=== PATIENT | male | born 1985 | race Caucasian/White ===

== ENCOUNTER 2017-11-04 15:14 | Outpatient (CLI) | END 2017-11-04 15:15 | disposition home or self-care (01) | LOC: CAR 15:14 | PROVIDERS: ATTEND Psychiatry & Neurology Sleep Medicine | DX: G47.33 Obstructive sleep apnea (adult) (pediatric) (principal) | CPT/HCPCS: 95810 ==

== ENCOUNTER 2018-06-22 10:40 | Outpatient (CLI) | END 2018-06-22 10:41 | disposition home or self-care (01) | LOC: RHC-LAB 10:40 | PROVIDERS: ATTEND Nurse Practitioner Family | DX: R05 Cough (principal) | CPT/HCPCS: 87502 ==

== ENCOUNTER 2020-09-05 21:26 | Inpatient (IN) ==
[2020-09-05 21:33] VITALS: BMI 26.2
[2020-09-05] MEDS: SODIUM CHLORIDE 1,000 ML IV STA (22:05)
[2020-09-05 22:19] LABS: BILIRUBIN,URINE Negative (NEGATIVE); CLARITY,URINE Clear (CLEAR); COLOR,URINE Yellow (YELLOW); GLUCOSE, URINE (UA) Negative (NEGATIVE); KETONES,URINE Negative (NEGATIVE); LEUKOCYTE ESTERASE ,URINE Negative (NEGATIVE); NITRITE,URINE Negative (NEGATIVE); PROTEIN,URINE 1+ (NEGATIVE); URINE, BLOOD Negative (NEGATIVE); UROBILINOGEN,URINE 0.2 (0.2)
[2020-09-05 22:24] LABS: SQUAMOUS EPITHELIAL CELL,UR 0-2 (0-5); URINE WBC, MICROSCOPIC 0-2 (0-2)
[2020-09-05 22:37] LABS: BASOPHILS % (AUTO) 0.4 % (0.0-3.0); EOSINOPHILS % (AUTO) 0.2 % (0.0-7.0); HEMATOCRIT 42.6 % (42.0-52.0); HEMOGLOBIN 14.3 g/dl (14.0-18.0); IMMATURE GRANULOCYTE % (AUTO) 0.3 % (0.0-5.0); LYMPHOCYTES # (AUTO) 1.1 K/uL (0.60-3.4); LYMPHOCYTES % (AUTO) 9.8 (10.0-50.0); MEAN CORPUSCULAR HEMOGLOBIN 30.8 pg (27.0-31.0); MEAN CORPUSCULAR HGB CONC 33.6 (31.8-35.4); MEAN CORPUSCULAR VOLUME 91.6 fl (80.0-94.0); MONOCYTES % (AUTO) 8.6 (0-10); NEUTROPHILS # (AUTO) 9.2 K/ul (2.0-6.9); NEUTROPHILS % (AUTO) 80.7 % (42.2-75.2); PLATELET COUNT 228 10^3/uL (140-440); RDW COEFFICIENT OF VARIATION 13.2 % (11.6-14.8); RED BLOOD COUNT 4.65 10^6/ul (4.70-6.10); WHITE BLOOD COUNT 11.39 K/ul (4.2-10.2)
[2020-09-05 22:49] LABS: ALANINE AMINOTRANSFERASE 30.1 U/L (0-50); ALBUMIN 4.11 g/dL (3.5-5.0); ALKALINE PHOSPHATASE 58.6 U/L (38-126); AMYLASE 70.7 U/L (30-110); ASPARTATE AMINO TRANSFERASE 23.5 U/L (17-59); BILIRUBIN,TOTAL 0.74 mg/dL (0.2-1.3); BLOOD UREA NITROGEN 14.1 mg/dL (9-20); CALCIUM 8.47 mg/dL (8.4-10.2); CARBON DIOXIDE 26.2 mmol/L (22-30.0); CHLORIDE 105.6 mmol/L (98-107); CREATININE 1.19 mg/dL (0.60-1.10); GLUCOSE 146.1 mg/dL (74-106); LIPASE 77.6 U/L (23-300); POTASSIUM 3.62 mmol/L (3.5-5.1); SODIUM 138.3 mmol/L (134.5-145); TOTAL PROTEIN 6.8 g/dL (6.3-8.2)
[2020-09-05 23:13] LABS: ERYTHROCYTE SEDIMENTATION RATE 7 mm/hr (0-15)
--- NOTE | 2020-09-06 00:08 | CT ---
Exam: CT of the abdomen and pelvis pre and post contrast History: Lower abdomen pain Technique: [address] of the abdomen and pelvis with and without contrast FINDINGS: The lung bases are clear. No significant liver abnormality. The adrenals, pancreas and s pleen are unremarkable. The stomach and hiatus are unremarkable.The gallbladder appears normal. Kid neys and proximal collecting system are unremarkable. The appendix is normal. Bowel loops demonstra te normal caliber. No inflamatory change seen in the mesentery or retroperitoneum. Vascular structu res appear normal. Focal short segment sigmoid colonic thickening with pericolonic inflammation. Central offending dive rticula is present. No free intraperitoneal gas. Normal pelvic genitourinary structures. No acute findings of the skeleton. Impression: 1. Short segment sigmoid colonic thickening with pericolonic inflammation and central offending dive rticula. No measurable abscess cavity. A few specks of gas in the immediate adjacent mesentery. 2. No bowel or urinary obstruction All CT scans are performed using dose optimization techniques as appropriate to the performed exam an d include at least one of the following: Automated exposure control, adjustment of the mA and/or kV according t o size, and the use of iterative reconstruction technique.
[2020-09-06 00:22] LABS: BORDETELLA PARAPERTUSSIS (PCR) NOT DETECTED (NOT DETECT); BORDETELLA PERTUSSIS (PCR) NOT DETECTED (NOT DETECT); CHLAMYDIA PNEUMONIAE (PCR) NOT DETECTED (NOT DETECT); CORONAVIRUS 229E (PCR) NOT DETECTED (NOT DETECT); CORONAVIRUS HKU1 (PCR) NOT DETECTED (NOT DETECT); CORONAVIRUS NL63 (PCR) NOT DETECTED (NOT DETECT); CORONAVIRUS OC43 (PCR) NOT DETECTED (NOT DETECT); HUMAN METAPNEUMOVIRUS (PCR) NOT DETECTED (NOT DETECT); HUMAN RHINOVIRUS/ENTEROV (PCR) NOT DETECTED (NOT DETECT); INFLUENZA B (PCR) NOT DETECTED (NOT DETECT); MYCOPLASMA PNEUMONIAE (PCR) NOT DETECTED (NOT DETECT); PARAINFLUENZA VIRUS 1 (PCR) NOT DETECTED (NOT DETECT); PARAINFLUENZA VIRUS 2 (PCR) NOT DETECTED (NOT DETECT); PARAINFLUENZA VIRUS 3 (PCR) NOT DETECTED (NOT DETECT); PARAINFLUENZA VIRUS 4 (PCR) NOT DETECTED (NOT DETECT); RESPIRATORY SYNCYTIAL V (PCR) NOT DETECTED (NOT DETECT); SARS_COV_2 (PCR) NOT DETECTED (NOT DETECT)
--- NOTE | 2020-09-06 00:22 | ED.PDOC ---
General ED Provider: Dr. AKIL HOLT Chief Complaint: Abdominal Pain Stated Complaint: im hurting in my lower belly Time Seen by Provider: 09/06/20 00:22 Mode of Arrival: Walk-In Information Source: Patient Primary Care Provider: STACY ANGULO Nursing and Triage Documentation Reviewed and Agree: Yes Does patient meet sepsis criteria?: No System Inflammatory Response Syndrome: Not Applicable Sepsis Protocol: For patient's 13 years and over: Temp is 96.8 and below OR 101 and greater Pulse >90 BPM Resp >20/minute Acutely Altered Mental Status Are patient's symptoms suggestive of a new infection, such as: -Pneumonia -Skin, Soft Tissue -Endocarditis -UTI -Bone, Joint Infection -Implantable Device -Acute Abdominal Infection -Wound Infection -Meningitis -Blood Stream Catheter Infection -Unknown GI Complaint Exam Abdominal Pain Complaint/Exam Onset: Gradual Duration: 2 days Symptoms Are: Still present Timing: Constant Initial Severity: Mild Current Severity: Mild Location of Pain: Suprapubic Character: Reports Dull, Aching and Cramping Aggravating: Reports None Alleviating: Reports None Associated Signs and Symptoms: Denies Diaphoresis, Fever, Cough, Chest pain, Dizziness, Back pain, Constipation, Blood in stool, Dysuria, Urinary frequency, Decreased urine output, Decreased appetite, Discharge, Nausea, Vomiting, Diarrhea and Decreased activity Abdominal Findings: Present None Differential Diagnoses: Constipation and Diverticulitis Quality Indicator For Non-Traumatic Chest Pain/Syncope: EKG Performed Review of Systems Review Of Systems Constitutional: Reports No symptoms Eyes: Reports No symptoms Ears, Nose, Mouth, Throat: Reports No symptoms Respiratory: Reports No symptoms Cardiac: Reports No symptoms GI: Reports Abdominal pain : Reports No symptoms Musculoskeletal: Reports No symptoms Skin: Reports No symptoms Neurological: Reports No symptoms Endocrine: Reports No symptoms Hematologic/Lymphatic: Reports No symptoms All Other Systems: Reviewed and Negative [facility] Medical History Potential exposure to STD Throat irritation Family History Mother Diabetes Hyperlipidemia Hyperthyroidism Hypertension FATHER No problems noted. Grandfather/Grandmother Dementia Cardiac disease Hyperlipidemia Hyperthyroidism Kidney disorder Cerebrovascular accident Hypertension Other Thyroid cancer Social History Smoking and tobacco status: Never smoker Alcohol intake: never Substance use type: does not use Rula/nondenominational: voodoo of Special rula needs: No Agree to transfusion: Yes Adopted: No Caregiver/support person: Yes Household members: family Housing: house Lives independently: Yes Highest education level completed: Master's degree Financial difficulty paying for basics: not applicable service: Yes Current occupational status: employed Current occupation: Teacher Current occupational exposures/hazards: Yes Pets and animals: Yes Leisure activites: exercise and games History of recent travel: No Sexually active: Yes Do you think of yourself as: straight/heterosexual Current gender identity: male Seatbelt use: always Helmet use: No Drives intoxicated or rides with intoxicated race car driver: No Water heater temperature set < 120 degrees: Yes Working smoke detector in home: Yes Fire extinguisher in home: Yes Carbon monoxide detector in home: Yes Firearms in home: Yes Firearms unloaded and locked: Yes Surgical History History of dental surgery Status post hernia repair Physical Exam Physical Exam Appearance: Reports Well-appearing Ill-appearing: Not Applicable Pain Distress: Moderate Eyes: Reports LILIA, EOMI and Conjunctiva clear ENT: Reports Ears normal, Nose normal and Oropharynx normal Neck: Supple Respiratory: Reports Airway patent, Breath sounds clear and Breath sounds equal Cardiovascular: Reports RRR, Pulses normal, No rub and No murmur GI/: Reports Soft, Nontender, No masses and Bowel sounds normal Musculoskeletal: Reports Normal strength, ROM intact, No edema and No calf tenderness Skin: Reports Warm, Dry and Normal color Neurological: Reports Sensation intact, Motor intact, Reflexes intact, Cranial nerves intact, Alert and Oriented Psychiatric: Reports Affect appropriate and Mood appropriate Interpretation Radiology Interpretation Radiology Interpretation By: Radiologist Radiology Results: Positive Exam Interpreted: CT Scan EKG Interpretation Time of EKG #1: 00:20 Rate: Normal Rhythm: Sinus Ectopy: None [place]: NL ST Segment: Normal Interpretation: nsr Physician Notification Case Discussed Physician Notified: dr angulo Time of Notification: 00:21 Critical Care Note Critical Care Note Total Critical Care Time (mins): 0 Course Course Hematology/Chemistry: 09/05/20 22:31 09/05/20 22:31 Orders, Labs, Meds: Lab Review 09/05/20 09/05/20 09/05/20 21:50 22:31 22:31 WBC 11.39 H RBC 4.65 L Hgb 14.3 Hct 42.6 MCV 91.6 MCH 30.8 MCHC 33.6 RDW Coeff of Geoffrey 13.2 Plt Count 228 Immature Gran % (Auto) 0.3 Neut % (Auto) 80.7 H Lymph % (Auto) 9.8 L [place] % (Auto) 8.6 Eos % (Auto) 0.2 Baso % (Auto) 0.4 Neut # (Auto) 9.2 H Lymph # (Auto) 1.1 [place] # (Auto) 1.0 Eos # (Auto) 0.0 Baso # (Auto) 0.0 Immature Gran # (Auto) 0.0 ESR 7 Sodium 138.3 Potassium 3.62 Chloride 105.6 Carbon Dioxide 26.2 Anion Gap 10.12 BUN 14.1 Creatinine 1.19 H Estimated GFR (MDRD) 69.00 BUN/Creatinine Ratio 11.84 Glucose 146.1 H Calcium 8.47 Total Bilirubin 0.74 AST 23.5 ALT 30.1 Alkaline Phosphatase 58.6 Total Protein 6.80 Albumin 4.11 Globulin 2.69 Albumin/Globulin Ratio 1.52 Amylase 70.7 Lipase 77.6 Urine Color Yellow Urine Clarity Clear Urine pH 6.0 Ur Specific [place] >=1.030 Urine Protein 1+ H Urine Glucose (UA) Negative Urine Ketones Negative Urine Blood Negative Urine Nitrite Negative Urine Bilirubin Negative Urine Urobilinogen 0.2 Ur Leukocyte Esterase Negative Urine Microscopic WBC 0-2 Ur Squamous Epith Cells 0-2 Orders Category Date Time Status EKG-(ED ONLY) Stat CARDIO 09/05/20 21:57 Completed NPO REMINDER: IMAGING ONCE CARE 09/05/20 21:58 Completed ED IV/MEDIPORT/POWERPORT .ONCE EMERGENCY 09/05/20 21:57 Active AMYLASE Stat LAB 09/05/20 22:31 Completed CBC W/ AUTO DIFF Stat LAB 09/05/20 22:31 Completed COMPREHENSIVE METABOLIC PANEL Stat LAB 09/05/20 22:31 Completed ESR Stat LAB 09/05/20 22:31 Completed LIPASE Stat LAB 09/05/20 22:31 Completed RESPIRATORY PANEL 2.1 (PCR) Stat LAB 09/06/20 Ordered URINALYSIS C & S IF INDICATED Stat LAB 09/05/20 21:50 Completed 0.9 % Sodium Chloride [Saline Flush] MEDS 09/05/20 21:57 Active 1 syr IVF PRN PRN Sodium Chloride 0.9% [Sodium Chloride] 1,000 ml MEDS 09/05/20 21:57 Active IV 100 mls/hr CT ABDOMEN/PELVIS W/WO CONTRAS Stat RADS 09/05/20 21:57 Completed Medications Generic Name Dose Route Start Last Admin Trade Name Freq PRN Reason Stop Dose Admin Sodium Chloride 1,000 mls @ 100 mls/hr 09/05/20 21:57 09/05/20 22:05 Sodium Chloride IV 09/06/20 07:56 100 mls/hr .Q10H STA Administration Sodium Chloride 1 syr 09/05/20 21:57 0.9% Sodium Chloride 10 Ml Disp.Syrin IVF PRN PRN To flush IV Vital Signs: Temp Pulse Resp BP Pulse Ox 09/05/20 21:27 97.3 F L 104 H 20 143/72 H 98 Discharge Plan Discharge Patient Disposition: ADMITTED INPATIENT Discharge Problem: Diverticulitis Prescriptions: No Action MULTI VITAMIN DAILY 1 EACH tablet 1 ea PO DAILY RF: 0 testosterone 2.5 GM gel in packet 0.75 ml transdermal WEEKLY RF: 0 losartan-hydrochlorothiazide 1 EACH tablet 1 ea PO DAILY RF: 0 rosuvastatin [Crestor] 20 mg Tablet 20 mg PO DAILY RF: 0 anastrozole 1 mg Tablet 1 mg PO DAILY RF: 0 lorazepam [Ativan] 0.5 mg Tablet 0.5 mg PO BEDTIME PRN (Reason: Anxiety) RF: 0 ED Provider: AKIL HOLT Condition: Good Physician Progress Note: []
[2020-09-06] MEDS ORDERED: LEVAQUIN 750 MG/150 ML D5W 750 MG/150 ML BAG IV SCH (00:30)
[2020-09-06] MEDS ORDERED: DILAUDID 1 MG/ML SYRINGE ONE (00:31)
[2020-09-06] MEDS: DILAUDID 1 MG/ML SYRINGE IVP PRN ×5 (00:36→23:30)
[2020-09-06 01:10] LABS: ADENOVIRUS (PCR) NOT DETECTED (NOT DETECT)
[2020-09-06] MEDS: D5%-NS-KCL 20 MEQ/L IV SOL 1,000 ML IV SCH ×4 (01:52→13:37)
[2020-09-06] MEDS: FLAGYL 500 MG/100 ML 500 MG/100 ML BAG IV SCH ×4 (02:11→20:24)
[2020-09-06 04:59] LABS: BASOPHILS % (AUTO) 0.4 % (0.0-3.0); EOSINOPHILS % (AUTO) 0.2 % (0.0-7.0); HEMATOCRIT 40.9 % (42.0-52.0); HEMOGLOBIN 13.4 g/dl (14.0-18.0); IMMATURE GRANULOCYTE % (AUTO) 0.4 % (0.0-5.0); LYMPHOCYTES # (AUTO) 1.1 K/uL (0.60-3.4); LYMPHOCYTES % (AUTO) 10.3 (10.0-50.0); MEAN CORPUSCULAR HEMOGLOBIN 30.5 pg (27.0-31.0); MEAN CORPUSCULAR HGB CONC 32.8 (31.8-35.4); MONOCYTES % (AUTO) 8.8 (0-10); NEUTROPHILS # (AUTO) 8.9 K/ul (2.0-6.9); NEUTROPHILS % (AUTO) 79.9 % (42.2-75.2); PLATELET COUNT 213 10^3/uL (140-440); RDW COEFFICIENT OF VARIATION 13.2 % (11.6-14.8); WHITE BLOOD COUNT 11.08 K/ul (4.2-10.2)
[2020-09-06 05:12] LABS: ALANINE AMINOTRANSFERASE 27.3 U/L (0-50); ALBUMIN 3.79 g/dL (3.5-5.0); ALKALINE PHOSPHATASE 52.5 U/L (38-126); ASPARTATE AMINO TRANSFERASE 23.2 U/L (17-59); BILIRUBIN,TOTAL 0.71 mg/dL (0.2-1.3); BLOOD UREA NITROGEN 12.1 mg/dL (9-20); CALCIUM 8.15 mg/dL (8.4-10.2); CARBON DIOXIDE 27.7 mmol/L (22-30.0); CHLORIDE 106.1 mmol/L (98-107); CREATININE 1.11 mg/dL (0.60-1.10); GLUCOSE 115.5 mg/dL (74-106); POTASSIUM 4.33 mmol/L (3.5-5.1); SODIUM 137.9 mmol/L (134.5-145); TOTAL PROTEIN 6.51 g/dL (6.3-8.2)
--- NOTE | 2020-09-06 09:24 | PCM.PROG ---
Attending Provider: ATTENDING PROVIDER: Dr. STACY CHAN DATE OF SERVICE: 09/06/20 SUBJECTIVE: This 35 year old /WHITE M was hospitalized 09/06/20 with acute diverticulitis. The patient's condition is still the same with lower quadrant abdominal pain which is mild. The patient has a low grade fever, no chills. Symptoms of diverticulitis for past three days. The patient had a bowel movement yesterday. The CT of abdomen and pelvis showed pericolonic inflammation, no abscess and no free air. REVIEW OF SYSTEMS: CONSTITUTIONAL: No night sweats. No fatigue, malaise, lethargy. No fever or chills. HEENT: Eyes: No visual changes. No eye pain. No eye discharge. ENT: No runny nose. No epistaxis. No sinus pain. No odynophagia. No congestion. RESPIRATORY: No cough, no congestion. No hemoptysis. No shortness of breath. CARDIOVASCULAR: No angina symptoms. No CHF symptoms. No atypical chest pain for CAD. No palpitations. No orthopnea.. GASTROINTESTINAL: No abdominal pain. No nausea or vomiting. No diarrhea or constipation. No hematemesis. No hematochezia. GENITOURINARY: No urgency. No frequency. No dysuria. No hematuria. No obstructive symptoms. No discharge. No pain. No significant abnormal bleeding. MUSCULOSKELETAL: No musculoskeletal pain; no joint swelling. NEUROLOGICAL: Awake, alert, oriented to time, place and person. No headache. No neck pain. No syncope. No seizures. No dizziness. PSYCHIATRIC: Not anxious. No depression. No suicidal thoughts. No homicidal thoughts. SKIN: No rash. No lesions. No wounds. ENDOCRINE: No unexplained weight loss. No weight gain. HEMATOLOGIC/LYMPHATIC: No anemia. No purpura. No petechiae. No prolonged or excessive bleeding. No palpable lymph nodes. PHYSICAL EXAMINATION: GENERAL: The patient is awake, alert and oriented, lying in bed in no distress. VITAL SIGNS: Temperature 99.3 F, Pulse 92, Respiratory Rate 18, BP 142/73, Pulse Ox 96% HEENT: Head normocephalic, atraumatic. Eyes: Extraocular muscles are intact. Pupils are equal, round and reactive to light and accommodation. Ears: No lesions. Nose appeared normal. Throat: No exudate or erythema. NECK: Supple. No JVD, no carotid bruit. No lymphadenopathy or thyromegaly. LUNGS: Clear to auscultation. Percussion note normal. Chest symmetrical. HEART: S1, S2, no S3. No murmurs. No cyanosis or clubbing. No ascites. P ulses: Dorsalis pedis and posterior tibial pulses +1 to +2 both sides. ABDOMEN: Soft. Tender in both lower quadrant. No rebound. Bowel sounds active. No CVA tenderness. No mass felt. EXTREMITIES: No edema. Full range of motion of all extremities, equal. NEUROLOGIC: No focal deficit. Cranial nerves II through XII are grossly intact. No headache, no double vision or headache. SKIN: Warm and dry. Intact. Turgor-normal. LYMPHATIC: No palpable lymph nodes/no lymphedema. MUSCULOSKELETAL: Normal joints with no swelling. Muscle tone is normal. LAB REVIEW: 09/06/20 04:47 09/06/20 04:47 09/06/20 04:47: Sodium 137.9, Potassium 4.33, Chloride 106.1, Carbon Dioxide 27.7, Anion Gap 8.43, BUN 12.1, Creatinine 1.11 H, Estimated GFR (MDRD) 75.00, BUN/Creatinine Ratio 10.90, Glucose 115.5 H, Calcium 8.15 L, Total Bilirubin 0.71, AST 23.2, ALT 27.3, Alkaline Phosphatase 52.5, Total Protein 6.51, Albumin 3.79, Globulin 2.72, Albumin/Globulin Ratio 1.39 09/06/20 04:47: WBC 11.08 H, RBC 4.40 L, Hgb 13.4 L, Hct 40.9 L, MCV 93.0, MCH 30.5, MCHC 32.8, RDW Coeff of Geoffrey 13.2, Plt Count 213, Immature Gran % (Auto) 0.4, Neut % (Auto) 79.9 H, Lymph % (Auto) 10.3, [place] % (Auto) 8.8, Eos % (Auto) 0.2, Baso % (Auto) 0.4, Neut # (Auto) 8.9 H, Lymph # (Auto) 1.1, [place] # (Auto) 1.0, Eos # (Auto) 0.0, Baso # (Auto) 0.0, Immature Gran # (Auto) 0.0 09/06/20 00:20: Adenovirus (PCR) Not detected, B. pertussis DNA (PCR) Not detected, B.parapertussis DNA PCR Not detected, C. pneumoniae DNA (PCR) Not detected, Coronavirus OC43 (PCR) Not detected, Coronavirus HKU1 (PCR) Not detected, Coronavirus 229E (PCR) Not detected, Coronavirus NL63 (PCR) Not detected, Human Metapneumovir PCR Not detected, Influenza Type A (PCR) Not detected, Influenza B (RT-PCR) Not detected, M. pneumoniae (PCR) Not detected, Parainfluenza 1 (PCR) Not detected, Parainfluenza 2 (PCR) Not detected, Parainfluenza 3 (PCR) Not detected, Parainfluenza 4 (PCR) Not detected, RSV (PCR) Not detected, Entero/Rhino (PCR) Not detected, SARS-CoV-2 (PCR) Not detected 09/05/20 22:31: Sodium 138.3, Potassium 3.62, Chloride 105.6, Carbon Dioxide 26.2, Anion Gap 10.12, BUN 14.1, Creatinine 1.19 H, Estimated GFR (MDRD) 69.00, BUN/Creatinine Ratio 11.84, Glucose 146.1 H, Calcium 8.47, Total Bilirubin 0.74, AST 23.5, ALT 30.1, Alkaline Phosphatase 58.6, Total Protein 6.80, Albumin 4.11, Globulin 2.69, Albumin/Globulin Ratio 1.52, Amylase 70.7, Lipase 77.6 09/05/20 22:31: WBC 11.39 H, RBC 4.65 L, Hgb 14.3, Hct 42.6, MCV 91.6, MCH 30.8, MCHC 33.6, RDW Coeff of Geoffrey 13.2, Plt Count 228, Immature Gran % (Auto) 0.3, Neut % (Auto) 80.7 H, Lymph % (Auto) 9.8 L, [place] % (Auto) 8.6, Eos % (Auto) 0.2, Baso % (Auto) 0.4, Neut # (Auto) 9.2 H, Lymph # (Auto) 1.1, [place] # (Auto) 1.0, Eos # (Auto) 0.0, Baso # (Auto) 0.0, Immature Gran # (Auto) 0.0, ESR 7 09/05/20 21:50: Urine Color Yellow, Urine Clarity Clear, Urine pH 6.0, Ur Specific [place] >=1.030, Urine Protein 1+ H, Urine Glucose (UA) Negative, Urine Ketones Negative, Urine Blood Negative, Urine Nitrite Negative, Urine Bilirubin Negative, Urine Urobilinogen 0.2, Ur Leukocyte Esterase Negative, Urine Microscopic WBC 0-2, Ur Squamous Epith Cells 0-2 ASSESSMENT: Please see below. 1. Acute diverticulitis PLAN: 1. Continue Flagyl and Levaquin 2. The patient is hungry, we are going to start clear liquids. 3. The patient is advised to be up and about 4. Continue IV fluids at 75cc an hour. Plan and coordination of the patient's care discussed in the presence of Ceramics Machine Operator and nurse. SCRIBED BY: JUDI GALO Analysis Consultant scribed while in presence of service performed by Dr. STACY CHAN on 09/06/20 ([id number])
[2020-09-06] MEDS: HYZAAR 50-12.5 MG TAB PO SCH (10:07)
[2020-09-06] MEDS: ARIMIDEX PO SCH ×2 (10:07→10:17)
[2020-09-06] MEDS: CRESTOR PO SCH (10:08)
[2020-09-06] MEDS: LOVENOX SUBCUT SCH (10:08)
[2020-09-06] MEDS: ZOFRAN 4 MG/2 ML IVP PRN ×2 (11:27→23:36)
[2020-09-06] MEDS: LEVAQUIN 750 MG/150 ML D5W 750 MG/150 ML BAG IV SCH (21:38)
[2020-09-07] MEDS: DILAUDID 1 MG/ML SYRINGE IVP PRN ×4 (04:02→21:38)
[2020-09-07] MEDS: FLAGYL 500 MG/100 ML 500 MG/100 ML BAG IV SCH ×3 (04:03→20:22)
[2020-09-07 05:27] LABS: BASOPHILS # (AUTO) 0.1 K/uL (0-0.2); BASOPHILS % (AUTO) 0.5 % (0.0-3.0); EOSINOPHILS % (AUTO) 0.2 % (0.0-7.0); HEMATOCRIT 40.3 % (42.0-52.0); HEMOGLOBIN 13.4 g/dl (14.0-18.0); IMMATURE GRANULOCYTE % (AUTO) 0.3 % (0.0-5.0); LYMPHOCYTES # (AUTO) 1.2 K/uL (0.60-3.4); LYMPHOCYTES % (AUTO) 11.8 (10.0-50.0); MEAN CORPUSCULAR HEMOGLOBIN 31.3 pg (27.0-31.0); MEAN CORPUSCULAR HGB CONC 33.3 (31.8-35.4); MEAN CORPUSCULAR VOLUME 94.2 fl (80.0-94.0); MONOCYTES # (AUTO) 1.1 K/uL (0.4-2.0); MONOCYTES % (AUTO) 10.3 (0-10); NEUTROPHILS # (AUTO) 8.1 K/ul (2.0-6.9); NEUTROPHILS % (AUTO) 76.9 % (42.2-75.2); PLATELET COUNT 196 10^3/uL (140-440); RDW COEFFICIENT OF VARIATION 13.1 % (11.6-14.8); RED BLOOD COUNT 4.28 10^6/ul (4.70-6.10); WHITE BLOOD COUNT 10.52 K/ul (4.2-10.2)
[2020-09-07 05:31] LABS: ALANINE AMINOTRANSFERASE 20.4 U/L (0-50); ALBUMIN 3.83 g/dL (3.5-5.0); ASPARTATE AMINO TRANSFERASE 24.8 U/L (17-59); BILIRUBIN,TOTAL 0.81 mg/dL (0.2-1.3); BLOOD UREA NITROGEN 8.5 mg/dL (9-20); CALCIUM 8.56 mg/dL (8.4-10.2); CARBON DIOXIDE 29.8 mmol/L (22-30.0); CHLORIDE 101.3 mmol/L (98-107); CREATININE 1.28 mg/dL (0.60-1.10); GLUCOSE 110.2 mg/dL (74-106); POTASSIUM 3.96 mmol/L (3.5-5.1); SODIUM 136.8 mmol/L (134.5-145); TOTAL PROTEIN 6.6 g/dL (6.3-8.2)
[2020-09-07] MEDS: D5%-NS-KCL 20 MEQ/L IV SOL 1,000 ML IV SCH (07:15)
[2020-09-07] MEDS: CRESTOR PO SCH (09:04)
[2020-09-07] MEDS: HYZAAR 50-12.5 MG TAB PO SCH (09:04)
[2020-09-07] MEDS: LOVENOX SUBCUT SCH (09:04)
[2020-09-07] MEDS: ZOFRAN 4 MG/2 ML IVP PRN ×2 (09:37→21:38)
[2020-09-07] MEDS: LEVAQUIN 750 MG/150 ML D5W 750 MG/150 ML BAG IV SCH (21:34)
[2020-09-07] MEDS: ATIVAN PO PRN (23:16)
[2020-09-08] MEDS: D5%-NS-KCL 20 MEQ/L IV SOL 1,000 ML IV SCH ×2 (00:09→13:02)
[2020-09-08 05:07] LABS: BASOPHILS % (AUTO) 0.6 % (0.0-3.0); EOSINOPHILS % (AUTO) 0.6 % (0.0-7.0); HEMOGLOBIN 13.4 g/dl (14.0-18.0); IMMATURE GRANULOCYTE % (AUTO) 0.4 % (0.0-5.0); LYMPHOCYTES # (AUTO) 0.9 K/uL (0.60-3.4); LYMPHOCYTES % (AUTO) 13.6 (10.0-50.0); MEAN CORPUSCULAR HEMOGLOBIN 30.7 pg (27.0-31.0); MEAN CORPUSCULAR HGB CONC 33.5 (31.8-35.4); MEAN CORPUSCULAR VOLUME 91.5 fl (80.0-94.0); MONOCYTES # (AUTO) 0.7 K/uL (0.4-2.0); MONOCYTES % (AUTO) 10.1 (0-10); NEUTROPHILS # (AUTO) 5.1 K/ul (2.0-6.9); NEUTROPHILS % (AUTO) 74.7 % (42.2-75.2); PLATELET COUNT 228 10^3/uL (140-440); RDW COEFFICIENT OF VARIATION 12.9 % (11.6-14.8); RED BLOOD COUNT 4.37 10^6/ul (4.70-6.10); WHITE BLOOD COUNT 6.85 K/ul (4.2-10.2)
[2020-09-08 05:22] LABS: ALANINE AMINOTRANSFERASE 17.2 U/L (0-50); ALBUMIN 3.69 g/dL (3.5-5.0); ALKALINE PHOSPHATASE 50.3 U/L (38-126); ASPARTATE AMINO TRANSFERASE 18.9 U/L (17-59); BILIRUBIN,TOTAL 0.55 mg/dL (0.2-1.3); BLOOD UREA NITROGEN 8.8 mg/dL (9-20); CALCIUM 8.83 mg/dL (8.4-10.2); CARBON DIOXIDE 28.3 mmol/L (22-30.0); CHLORIDE 104.1 mmol/L (98-107); CREATININE 1.21 mg/dL (0.60-1.10); GLUCOSE 106.1 mg/dL (74-106); POTASSIUM 4.06 mmol/L (3.5-5.1); SODIUM 137.8 mmol/L (134.5-145); TOTAL PROTEIN 6.44 g/dL (6.3-8.2)
[2020-09-08] MEDS: FLAGYL 500 MG/100 ML 500 MG/100 ML BAG IV SCH ×3 (05:48→20:13)
[2020-09-08] MEDS: HYZAAR 50-12.5 MG TAB PO SCH (09:13)
[2020-09-08] MEDS: CRESTOR PO SCH (09:13)
[2020-09-08] MEDS: LOVENOX SUBCUT SCH (09:14)
[2020-09-08] MEDS: ATIVAN PO PRN (20:13)
[2020-09-08] MEDS: LEVAQUIN 750 MG/150 ML D5W 750 MG/150 ML BAG IV SCH (21:21)
[2020-09-09 05:02] LABS: BASOPHILS # (AUTO) 0.1 K/uL (0-0.2); BASOPHILS % (AUTO) 0.7 % (0.0-3.0); EOSINOPHILS # (AUTO) 0.1 K/ul (0.0-0.7); EOSINOPHILS % (AUTO) 1.6 % (0.0-7.0); HEMOGLOBIN 14.3 g/dl (14.0-18.0); IMMATURE GRANULOCYTE % (AUTO) 0.4 % (0.0-5.0); LYMPHOCYTES # (AUTO) 1.4 K/uL (0.60-3.4); LYMPHOCYTES % (AUTO) 20.6 (10.0-50.0); MEAN CORPUSCULAR HEMOGLOBIN 30.2 pg (27.0-31.0); MEAN CORPUSCULAR HGB CONC 33.3 (31.8-35.4); MEAN CORPUSCULAR VOLUME 90.9 fl (80.0-94.0); MONOCYTES # (AUTO) 0.8 K/uL (0.4-2.0); NEUTROPHILS # (AUTO) 4.5 K/ul (2.0-6.9); NEUTROPHILS % (AUTO) 65.7 % (42.2-75.2); PLATELET COUNT 279 10^3/uL (140-440); RDW COEFFICIENT OF VARIATION 12.6 % (11.6-14.8); RED BLOOD COUNT 4.73 10^6/ul (4.70-6.10); WHITE BLOOD COUNT 6.83 K/ul (4.2-10.2)
[2020-09-09 05:12] LABS: ALBUMIN 4.07 g/dL (3.5-5.0); ALKALINE PHOSPHATASE 54.5 U/L (38-126); ASPARTATE AMINO TRANSFERASE 22.8 U/L (17-59); BILIRUBIN,TOTAL 0.47 mg/dL (0.2-1.3); BLOOD UREA NITROGEN 14.4 mg/dL (9-20); CALCIUM 9.14 mg/dL (8.4-10.2); CARBON DIOXIDE 32.3 mmol/L (22-30.0); CHLORIDE 101.6 mmol/L (98-107); CREATININE 1.43 mg/dL (0.60-1.10); GLUCOSE 103.3 mg/dL (74-106); POTASSIUM 4.28 mmol/L (3.5-5.1); SODIUM 139.5 mmol/L (134.5-145); TOTAL PROTEIN 6.9 g/dL (6.3-8.2)
[2020-09-09] MEDS: FLAGYL 500 MG/100 ML 500 MG/100 ML BAG IV SCH (05:34)
[2020-09-09 05:46] VITALS: BP 141/87; TEMP 97.7
--- NOTE | 2020-09-09 09:05 | PN ---
DATE OF SERVICE: 09/07/2020 SUBJECTIVE: 35 year old white male hospitalized with acute diverticulitis. The patient condition has improved some. The patient has been passing gas, less distention. The pain according to him was a little less than what it was when he came in with no fever, no chills, no nausea. REVIEW OF SYSTEMS: CONSTITUTIONAL: No night sweats. No fatigue, malaise, lethargy. No fever or chills. HEENT: Eyes: No visual changes. No eye pain. No eye discharge. ENT: No runny nose. No epistaxis. No sinus pain. No sore throat. No odynophagia. No congestion. RESPIRATORY: No cough, no congestion. No hemoptysis. No shortness of breath. CARDIOVASCULAR: No angina symptoms. No CHF symptoms. No atypical chest pain for CAD. No palpitations. No PND. No orthopnea. GASTROINTESTINAL: No abdominal pain. No nausea or vomiting. No diarrhea or constipation. No hematemesis. No hematochezia. GENITOURINARY: No urgency. No frequency. No dysuria. No hematuria. No obstructive symptoms. No discharge. No pain. No significant abnormal bleeding. MUSCULOSKELETAL: No musculoskeletal pain; no joint swelling. NEUROLOGICAL: No headache. No neck pain. No syncope. No seizures. No dizziness. PSYCHIATRIC: Not anxious. No depression. No suicidal thoughts. No homicidal thoughts. SKIN: No rash. No lesions. No wounds. ENDOCRINE: No unexplained weight loss. No weight gain. HEMATOLOGIC/LYMPHATIC: No anemia. No purpura. No petechiae. No prolonged or excessive bleeding. No palpable lymph nodes. PHYSICAL EXAMINATION: VITAL SIGNS: Temperature 98.6, pulse 84, respiratory rate 16, blood pressure 123/67 and pulse ox 98%. HEENT: Head normocephalic, atraumatic. Eyes: Extraocular muscles are intact. Pupils are equal, round and reactive to light and accommodation. Ears: No lesions. Nose appeared normal. Throat: No exudate or erythema. NECK: Supple. No JVD, no carotid bruit. No lymphadenopathy or thyromegaly. LUNGS: Decreased breath sounds but clear to auscultation. Percussion note normal. Chest symmetrical. HEART: S1, S2, no S3. No murmurs. No cyanosis or clubbing. No ascites. Pulses: Dorsalis pedis and posterior tibial pulses +1 to +2 bilaterally. ABDOMEN: Soft. Nontender. Bowel sounds active. No CVA tenderness. No mass felt. EXTREMITIES: No edema. Full range of motion of all extremities, equal. NEUROLOGIC: No focal deficit. Cranial nerves II through XII are grossly intact. No headache. No double vision. SKIN: Not dry. Intact. Turgor - normal. LYMPHATIC: No palpable lymph nodes/no lymphedema. MUSCULOSKELETAL: Normal joints with no swelling. Muscle tone is normal. LABS: hgb 13.4, hct 40, WBC 10,000 normal differential, creatinine 1.2, BUN 85, potassium 3.9, glucose 110. ASSESSMENT: 1. Acute diverticulitis seems to be improving some clinically as well as by examination PLAN: 1. Continue Levaquin and Flagyl. TIME SPENT: More than 30 minutes. Plan and coordination of the patient's care discussed in the presence of nurse. KIMBER
[2020-09-09] MEDS: HYZAAR 50-12.5 MG TAB PO SCH (09:06)
[2020-09-09] MEDS: CRESTOR PO SCH (09:06)
[2020-09-09] MEDS: LOVENOX SUBCUT SCH (09:09)
--- NOTE | 2020-09-09 09:19 | PN ---
DATE OF SERVICE: 09/08/2020 SUBJECTIVE: The patient was hospitalized with acute diverticulitis which his condition has improved steadily and feeling a lot better. He has been passing a lot of gas and a small bowel movement. He is improving and wants to advance his diet because he is hungry. REVIEW OF SYSTEMS: CONSTITUTIONAL: No night sweats. No fatigue, malaise, lethargy. No fever or chills. HEENT: Eyes: No visual changes. No eye pain. No eye discharge. ENT: No runny nose. No epistaxis. No sinus pain. No sore throat. No odynophagia. No congestion. RESPIRATORY: No cough, no congestion. No hemoptysis. No shortness of breath. CARDIOVASCULAR: No angina symptoms. No CHF symptoms. No atypical chest pain for CAD. No palpitations. No PND. No orthopnea. GASTROINTESTINAL: Mild abdominal soreness, left lower quadrant. No nausea or vomiting. No diarrhea or constipation. No hematemesis. No hematochezia. GENITOURINARY: No urgency. No frequency. No dysuria. No hematuria. No obstructive symptoms. No discharge. No pain. No significant abnormal bleeding. MUSCULOSKELETAL: No musculoskeletal pain; no joint swelling. NEUROLOGICAL: No headache. No neck pain. No syncope. No seizures. No dizziness. PSYCHIATRIC: Not anxious. No depression. No suicidal thoughts. No homicidal thoughts. SKIN: No rash. No lesions. No wounds. ENDOCRINE: No unexplained weight loss. No weight gain. HEMATOLOGIC/LYMPHATIC: No anemia. No purpura. No petechiae. No prolonged or excessive bleeding. No palpable lymph nodes. PHYSICAL EXAMINATION: GENERAL: The patient is oriented to time, place and person. HEENT: Head normocephalic, atraumatic. Eyes: Extraocular muscles are intact. Pupils are equal, round and reactive to light and accommodation. Ears: No lesions. Nose appeared normal. Throat: No exudate or erythema. NECK: Supple. No JVD, no carotid bruit. No lymphadenopathy or thyromegaly. LUNGS: Clear to auscultation. Percussion note normal. Chest symmetrical. HEART: S1, S2, no S3. No murmurs. No cyanosis or clubbing. No ascites. Pulses: Dorsalis pedis and posterior tibial pulses +1 to +2 bilaterally. ABDOMEN: Soft. Nontender. Bowel sounds active. No CVA tenderness. No mass felt. EXTREMITIES: No edema. Full range of motion of all extremities, equal. NEUROLOGIC: No focal deficit. Cranial nerves II through XII are grossly intact. No headache. No double vision. SKIN: Not dry. Intact. Turgor - normal. LYMPHATIC: No palpable lymph nodes/no lymphedema. MUSCULOSKELETAL: Normal joints with no swelling. Muscle tone is normal. ASSESSMENT: 1. Acute diverticulitis, seems to be resolving, clinically. PLAN: 1. Continue IV Flagyl and Levaquin 2. Advance the diet 3. Discontinue the IV fluids CONDITION: Stable TIME SPENT: More than 30 minutes. Plan and coordination of the patient's care discussed in the presence of nurse. KIMBER
--- NOTE | 2020-09-09 09:51 | PCM.PROG ---
Attending Provider: ATTENDING PROVIDER: Dr. STACY CHAN This patient is seen with Chloe Campos, Nurse Practitioner. DATE OF SERVICE: 09/09/20 SUBJECTIVE: This 35 year old /WHITE M was hospitalized 09/06/20. The patient is resting comfortably in bed. He has been eating a regular diet since yesterday morning. Denies pain. He had a regular bowel movement yesterday afternoon. He has had no fever. Abdominal tenderness improved. He states he wants to go home. REVIEW OF SYSTEMS: CONSTITUTIONAL: No night sweats. No fatigue, malaise, lethargy. No fever or chills. HEENT: Eyes: No visual changes. No eye pain. No eye discharge. ENT: No runny nose. No epistaxis. No sinus pain. No odynophagia. No congestion. RESPIRATORY: No cough, no congestion. No hemoptysis. No shortness of breath. CARDIOVASCULAR: No angina symptoms. No CHF symptoms. No atypical chest pain for CAD. No palpitations. No orthopnea.. GASTROINTESTINAL: Abdominal tenderness. No abdominal pain. No nausea or vomiting. No diarrhea or constipation. No hematemesis. No hematochezia. GENITOURINARY: No urgency. No frequency. No dysuria. No hematuria. No obstructive symptoms. No discharge. No pain. No significant abnormal bleeding. MUSCULOSKELETAL: No musculoskeletal pain; no joint swelling. NEUROLOGICAL: Awake, alert, oriented to time, place and person. No headache. No neck pain. No syncope. No seizures. No dizziness. PSYCHIATRIC: Not anxious. No depression. No suicidal thoughts. No homicidal thou ghts. SKIN: No rash. No lesions. No wounds. ENDOCRINE: No unexplained weight loss. No weight gain. HEMATOLOGIC/LYMPHATIC: No anemia. No purpura. No petechiae. No prolonged or excessive bleeding. No palpable lymph nodes. PHYSICAL EXAMINATION: GENERAL: The patient is awake, alert and oriented, lying/sitting in bed in no distress. VITAL SIGNS: Temperature 97.7 F, Pulse 69, Respiratory Rate 18, BP 141/87, Pulse Ox 98% HEENT: Head normocephalic, atraumatic. Eyes: Extraocular muscles are intact. Pupils are equal, round and reactive to light and accommodation. Ears: No lesions. Nose appeared normal. Throat: No exudate or erythema. NECK: Supple. No JVD, no carotid bruit. No lymphadenopathy or thyromegaly. LUNGS: Clear to auscultation. Percussion note normal. Chest symmetrical. HEART: S1, S2, no S3. No murmurs. No cyanosis or clubbing. No ascites. Pu lses: Dorsalis pedis and posterior tibial pulses +1 to +2 both sides. ABDOMEN: Soft. Mild tenderness left lower quadrant, improved. Bowel sounds active. No CVA tenderness. No mass felt. EXTREMITIES: No edema. Full range of motion of all extremities, equal. NEUROLOGIC: No focal deficit. Cranial nerves II through XII are grossly intact. No headache. No double vision. SKIN: Not dry. Intact. Turgor-normal. LYMPHATIC: No palpable lymph nodes/no lymphedema. MUSCULOSKELETAL: Normal joints with no swelling. Muscle tone is normal. LAB REVIEW: 09/09/20 04:43 09/09/20 04:43 09/09/20 04:43: Sodium 139.5, Potassium 4.28, Chloride 101.6, Carbon Dioxide 32.3 H, Anion Gap 9.88, BUN 14.4, Creatinine 1.43 H, Estimated GFR (MDRD) 56.00, BUN/Creatinine Ratio 10.06, Glucose 103.3, Calcium 9.14, Total Bilirubin 0.47, AST 22.8, ALT 20.0, Alkaline Phosphatase 54.5, Total Protein 6.90, Albumin 4.07, Globulin 2.83, Albumin/Globulin Ratio 1.43 09/09/20 04:43: WBC 6.83, RBC 4.73, Hgb 14.3, Hct 43.0, MCV 90.9, MCH 30.2, MCHC 33.3, RDW Coeff of Geoffrey 12.6, Plt Count 279, Immature Gran % (Auto) 0.4, Neut % (Auto) 65.7, Lymph % (Auto) 20.6, [place] % (Auto) 11.0 H, Eos % (Auto) 1.6, Baso % (Auto) 0.7, Neut # (Auto) 4.5, Lymph # (Auto) 1.4, [place] # (Auto) 0.8, Eos # (Auto) 0.1, Baso # (Auto) 0.1, Immature Gran # (Auto) 0.0 ASSESSMENT: Please see below. 1. Acute sigmoid diverticulitis. 2. Dehydration improved. 3. Hypertension. PLAN: 1. D/C home. 2. Levaquin 500 mg p.o. times 7 days. 3. Flagyl 500 mg t.i.d. times 7 days. 4. Diverticular diet discussed in detail with the patient. 5. Followup next week. Plan and coordination of the patient's care discussed in the presence of Supervisor Coffee and nurse. CONDITION: Stable SCRIBED BY: Iva PATEL scribed while in presence of service performed by Dr. Chan/Chloe Campos APRN on 09/09/20 ([id number])
--- NOTE | 2020-09-09 10:03 | CM.DICTOOL ---
ADMISSION: 09/06/20 01:15 DISCHARGE: SEPTEMBER 09, 2020 DATE OF SERVICE: 09/09/20 FINAL DIAGNOSIS ACUTE DIVERTICULITIS, SIGMOID DIVERTICULOSIS PER CT IN 2019 HYPERTENSION CKD 2 DYSLIPIDEMIA ANXIETY HYPOGONADISM HERNIA REPAIR LAST VITALS Temp Pulse Resp BP Pulse Ox 97.7 F 69 18 141/87 H 98 09/09/20 05:44 09/09/20 05:44 09/09/20 05:44 09/09/20 05:44 09/09/20 05:44 TAKE THESE MEDICATIONS AT HOME Anastrozole (Anastrozole 1 Mg Tablet) 1 mg PO WEEKLY [facility] TESTOSTERONE 0.75 MG TRANSDERMAL WEEKLY TINA HCTZ/Losartan Potassium (Losartan/Hydrochlorothiazide 50/12.5 Mg Tab) 1 tab PO DAILY TINA Last Admin: 09/09/20 09:06 Dose: 1 tab Documented by: Lorazepam (Lorazepam 0.5 Mg Tablet) 0.5 mg PO BEDTIME PRN PRN Reason: Anxiety Last Admin: 09/08/20 20:13 Dose: 0.5 mg Documented by: Ondansetron HCl 4 mg PO Q4-6 HR PRN ( NEW PRESCRIPTION) PRN Reason: Nausea / Vomiting Last Admin: 09/07/20 21:38 Dose: 4 mg Documented by: Rosuvastatin Calcium (Rosuvastatin Calcium 10 Mg Tablet) 20 mg PO DAILY TINA Last Admin: 09/09/20 09:06 Dose: 20 mg Documented by: MULTIVITAMIN 1 TABLET PO TINA DAILY LAST ADMIN: LEVAQUIN 500 MG PO TINA DAILY FOR 7 DAYS (NEW PRESCRIPTION) FLAGYL 500 MG PO TINA TID FOR 7 DAYS (NEW PRESCRIPTION) ALLERGIES tetanus and diphtheria toxoids [tetanus & diphtheria toxoids] Allergy (Severe, Verified 09/06/20 00:28) Flu like symptons atropine Allergy (Intermediate, Verified 09/06/20 00:28) Redness and rash prior to surgery for eyes acetaminophen [From Darvocet-N 100] Adverse Reaction (Mild, Verified 09/06/20 00:28) rash propoxyphene napsylate [From Darvocet-N 100] Adverse Reaction (Mild, Verified 09/06/20 00:28) rash DISCONTINUED MEDICATIONS NO HOME MEDICATIONS HAVE BEEN DISCONTINUED NEW PRESCRIPTIONS: ALL PRESCRIPTIONS CALLED TO SON AT PATIENT REQUEST LEVAQUIN 500 MG DAILY FOR 7 DAYS FLAGYL 500 MG TID FOR 7 DAYS ZOFRAN 4 MG PO Q4-6 HOURS PRN NAUSEA SMOKING: NOT APPLICABLE DISEASE SPECIFIC EDUCATION: DIVERTICULITIS AND DIET MODIFICATION NEW MEDICATIONS APPOINTMENT LAB REVIEW: 09/09/20 04:43 09/09/20 04:43 09/09/20 04:43: Sodium 139.5, Potassium 4.28, Chloride 101.6, Carbon Dioxide 32.3 H, Anion Gap 9.88, BUN 14.4, Creatinine 1.43 H, Estimated GFR (MDRD) 56.00, BUN/Creatinine Ratio 10.06, Glucose 103.3, Calcium 9.14, Total Bilirubin 0.47, A ST 22.8, ALT 20.0, Alkaline Phosphatase 54.5, Total Protein 6.90, Albumin 4.07, Globulin 2.83, Albumin/Globulin Ratio 1.43 09/09/20 04:43: WBC 6.83, RBC 4.73, Hgb 14.3, Hct 43.0, MCV 90.9, MCH 30.2, MCHC 33.3, RDW Coeff of Geoffrey 12.6, Plt Count 279, Immature Gran % (Auto) 0.4, Neut % (Auto) 65.7, Lymph % (Auto) 20.6, [place] % (Auto) 11.0 H, Eos % (Auto) 1.6, Baso % (Auto) 0.7, Neut # (Auto) 4.5, Lymph # (Auto) 1.4, [place] # (Auto) 0.8, Eos # (Auto) 0.1, Baso # (Auto) 0.1, Immature Gran # (Auto) 0.0 PLAN: DISCHARGE HOME TODAY WITH DIET: REGULAR, BLAND AVOID SEEDS, NUTS, HUSKS AN APPOINTMENT IS SCHEDULED WITH DR. CHAN/ROBBIE SELLESR APRN/NAVI LALA APRN ON August AT 8 AM CODE STATUS: FULL CODE MR. ESQUIVEL IS ALERT AND ORIENTED X 4. HE LIVES AT HOME WITH HIS SPOUSE AND CHILDREN. HE IS INDEPENDENT WITH ALL ACTIVITIES OF DAILY LIVING. HE IS TOLERATING A REGULAR, BLAND DIET WITHOUT DIFFICULTY AND HAS CONSUMED 75-100% OF HIS LAST FOUR MEALS. HE IS AMBULATORY IN THE ROOM AND HALLWAYS WITHOUT STAFF ASSISTANCE OR USE OF ASSISTIVE DEVICE. MR. ESQUIVEL IS CONTINENT OF BOWEL AND BLADDER. HE REPORTS A STOOL ON THE . HYDRATION STATUS IS GOOD. SKIN IS INTACT AND FREE OF OPEN WOUNDS. MD ROBBIE SILVEIRA APRN ALY HANNAN, GEAR MACHINIST
--- NOTE | 2020-09-10 11:20 | HP ---
DATE OF SERVICE: 09/06/20 HISTORY OF PRESENT ILLNESS: 35-year-old white male who presents to the emergency room with abdominal pain, has been hurting for several days. He has had some diarrhea. PAST MEDICAL HISTORY: History of left sacroiliitis with lumbar muscle spasm Left lumbar radiculopathy Chronic kidney disease, Stage 2 Generalized anxiety disorder Hypertension Severe dyslipidemia Hypergonadism, sees Dr. Soto for testosterone Family history of coronary artery disease PAST SURGICAL HISTORY: Abdominal hernia 1999 Jaw surgery 2005 Eye surgery at 15 months old REVIEW OF SYSTEMS: CONSTITUTIONAL: No night sweats. No fatigue, malaise, lethargy. No fever or chills. HEENT: Eyes: No visual changes. No eye pain. No eye discharge. ENT: No runny nose. No epistaxis. No sinus pain. No sore throat. No odynophagia. No ear pain. No congestion. RESPIRATORY: No cough, no congestion. No hemoptysis. No shortness of breath. CARDIOVASCULAR: No angina symptoms. No CHF symptoms. No atypical chest pain for CAD. No palpitations. No PND. No orthopnea. GASTROINTESTINAL: Lower abdominal pain. Diarrhea. No nausea or vomiting. No hematemesis. No hematochezia. GENITOURINARY: No urgency. No frequency. No dysuria. No hematuria. No obstructive symptoms. No discharge. No pain. No significant abnormal bleeding. MUSCULOSKELETAL: No musculoskeletal pain. No joint swelling. No arthritis. NEUROLOGICAL: No headache. No neck pain. No syncope. No seizures. No dizziness. PSYCHIATRIC: Not anxious. No depression. No suicidal thoughts. No homicidal thoughts. SKIN: No rash. No lesions. No wounds. ENDOCRINE: No unexplained weight loss. No weight gain. HEMATOLOGIC/LYMPHATIC: No anemia. No purpura. No petechiae. No prolonged or excessive bleeding. No palpable lymph nodes. PERSONAL/FAMILY/SOCIAL HISTORY: He is with two children. He is a teacher. Nonsmoker. No alcohol, no ilicit drug use. MEDICATIONS: Multivitamin one p.o. daily Testosterone 0.75 mL transdermal weekly Losartan-Hydrochlorothiazide 100-25 mg one each p.o. daily Rosuvastatin (Crestor) 20 mg p.o. daily Anastrozole 1 mg p.o. weekly ALLERGIES: PROPOXYPHENE NAPSYLATE (FROM DARVOCET-N 100), ACETAMINOPHEN (FROM DARVOCET-N 100), ATROPINE, TETANUS PHYSICAL EXAMINATION: VITAL SIGNS: Temperature 97.3, heart rate 104, respirations 20, blood pressure 143/72, pulse ox 98%. HEENT: Head normocephalic, atraumatic. Eyes: Extraocular muscles are intact. Pupils are equal, round and reactive to light and accommodation. Ears: No lesions. Nose appeared normal. Throat: No exudate or erythema. NECK: Supple. No JVD, no carotid bruit. No lymphadenopathy or thyromegaly. LUNGS: Clear breath sounds. Percussion note normal. Chest symmetrical. HEART: S1, S2, no S3. No murmur. No cyanosis or clubbing. No ascites. Pulses: Dorsalis pedis and posterior tibial pulses +1 to +2 bilaterally. ABDOMEN: Moderate tenderness left lower quadrant. Soft. Bowel sounds active. No CVA tenderness. No mass felt. EXTREMITIES: No edema. Full range of motion of all extremities, equal. NEUROLOGIC: No focal deficit. Cranial nerves II through XII are grossly intact. No headache, no double vision or headache. SKIN: Not dry. Intact. Turgor - normal. LYMPHATIC: No palpable lymph nodes/no lymphedema. MUSCULOSKELETAL: Normal joints with no swelling. Muscle tone is normal. LABS/IMAGING: Sodium 138, potassium 3.6, BUN 14, creatinine 1.19, glucose 146, AST 23, ALT 30, white count 11.39, hemoglobin 14.3, hematocrit 42.6, platelets 228. Urine 1+ protein, otherwise normal. CT of the abdomen shows short segment sigmoid colonic thickening with pericolonic inflammation and central offending diverticula. No abscess. Consistent with acute sigmoid diverticulitis. Respiratory panel by PCR is negative. ASSESSMENT: 1. ACUTE SIGMOID DIVERTICULITIS PLAN: 1. We will admit. 2. Routine telemetry orders. 3. CBC, CMP daily. 4. Start Levaquin 750 mg IV daily. 5. Start Flagyl 500 mg IV q.8hr. 6. Zofran 4 mg IV q.6hr p.r.n. for nausea. 7. NS IV 75 cc/hr. 8. The patient is to be on a clear liquid diet. 9. Continue all home medications. 10. Morphine 1 mg q.4hr p.r.n. pain IV. 11. Will follow closely. TIME SPENT: More than 70 minutes. KIMBER
--- NOTE | 2020-09-10 11:30 | PN ---
DATE OF SERVICE: 09/09/2020 SUBJECTIVE: The patient is up and about. He was admitted with diverticulitis. He is having normal bowel movement. Appetite is practically normal. He is afebrile. The patient was seen and examined with the Nurse Practitioner. The patient is going to be discharged home to be followed as an outpatient. Diet for diverticulitis discussed. CONDITION:Stable. TIME SPENT: More than 30 minutes. Plan and coordination of the patient's care discussed in the presence of nurse. KIMBER
--- NOTE | 2020-09-10 11:31 | PN ---
09/06/2020: Level 5 09/07/2020: Intermediate 09/08/2020: Intermediate 09/09/2020: D as in discharge MTDD
--- NOTE | 2020-09-10 13:56 | DS ---
DATE OF SERVICE: 09/09/20 FINAL DIAGNOSIS: 1. ACUTE DIVERTICULITIS, SIGMOID 2. DIVERTICULOSIS PER CT IN 2019 3. HYPERTENSION 4. CKD 2 5. DYSLIPIDEMIA 6. ANXIETY 7. HYPOGONADISM 8. HERNIA REPAIR LAST VITALS Temp Pulse Resp BP Pulse Ox 97.7 F 69 18 141/87 H 98 09/09/20 05:44 09/09/20 05:44 09/09/20 05:44 09/09/20 05:44 09/09/20 05:44 DISCHARGE INSTRUCTIONS: 1. DISCHARGE HOME TODAY WITH . 2. AN APPOINTMENT IS SCHEDULED WITH DR. CHAN/ROBBIE SELLERS APRN/NAVI LALA APRN ON August AT 8 AM. MEDICATIONS AT DISCHARGE: Anastrozole (Anastrozole 1 Mg Tablet) 1 mg PO WEEKLY [facility]INA TESTOSTERONE 0.75 MG TRANSDERMAL WEEKLY TINA HCTZ/Losartan Potassium (Losartan/Hydrochlorothiazide 50/12.5 Mg Tab) 1 tab PO DAILY TINA Last Admin: 09/09/20 09:06 Dose: 1 tab Documented by: Lorazepam (Lorazepam 0.5 Mg Tablet) 0.5 mg PO BEDTIME PRN PRN Reason: Anxiety Last Admin: 09/08/20 20:13 Dose: 0.5 mg Documented by: Ondansetron HCl 4 mg PO Q4-6 HR PRN ( NEW PRESCRIPTION) PRN Reason: Nausea / Vomiting Last Admin: 09/07/20 21:38 Dose: 4 mg Documented by: Rosuvastatin Calcium (Rosuvastatin Calcium 10 Mg Tablet) 20 mg PO DAILY TINA Last Admin: 09/09/20 09:06 Dose: 20 mg Documented by: MULTIVITAMIN 1 TABLET PO TINA DAILY LAST ADMIN: LEVAQUIN 500 MG PO TINA DAILY FOR 7 DAYS (NEW PRESCRIPTION) FLAGYL 500 MG PO TINA TID FOR 7 DAYS (NEW PRESCRIPTION) NEW PRESCRIPTIONS: ALL PRESCRIPTIONS CALLED TO SON AT PATIENT REQUEST LEVAQUIN 500 MG DAILY FOR 7 DAYS FLAGYL 500 MG TID FOR 7 DAYS ZOFRAN 4 MG PO Q4-6 HOURS PRN NAUSEA DISCONTINUED MEDICATIONS: NO HOME MEDICATIONS HAVE BEEN DISCONTINUED DIET INSTRUCTIONS: REGULAR, BLAND AVOID SEEDS, NUTS, HUSKS SMOKING: NOT APPLICABLE DISEASE SPECIFIC EDUCATION: DIVERTICULITIS AND DIET MODIFICATION NEW MEDICATIONS APPOINTMENT HOSPITAL COURSE: This is a white male who was admitted with acute sigmoid diverticulitis. He came in through the emergency room, was unable to eat, had severe left lower abdominal pain on admission with elevated white count. CT showed he had acute sigmoid diverticulitis without abscess, was admitted, placed on Levaquin 750 mg IV daily along with Flagyl 500 mg IV q.8hr. He had some pretty severe nausea, needed Zofran 4 mg IV q.6hr for nausea. Also had Morphine 1 mg q.4 hr p.r.n. for pain which helped. He was on clear liquids for the first 48 hours. Yesterday morning he started on a bland diet. He had a regular bowel movement yesterday afternoon. This morning reports he is feeling much better. Still some tenderness in the left lower quadrant but is able to get up and around. He states he feels like going home. He had a low grade fever on admission, has not had fever in the past 24 hours. Will discharge him in stable condition. White count 6.83, hemoglobin 14.3, hematocrit 43, BUN 14, creatinine 1.43. This is about his baseline as he does have a history of chronic kidney disease. He was on IV fluids for 48 hours. He will go home with Levaquin 500 daily for the next 7 days along with Flagyl 500 t.i.d. for the next 7 days. Information has been provided regarding diverticular diet. Will also give him Zofran 4 mg p.o. q.4-6 hours p.r.n. Will follow him closely and see him in the office next week. TIME SPENT: More than 60 minutes. KIMBER
[2020-09-12] MEDS ORDERED: ARIMIDEX PO SCH (09:00)
== END 2020-09-09 10:40 | disposition home or self-care (01) | DRG 305 ==
LOC: ED 21:26 → MEDSURG A 09-06 01:15
PROVIDERS: ADMIT Internal Medicine; ATTEND Internal Medicine